=== PATIENT | male | born 1960 | race Caucasian/White ===

== ENCOUNTER 2021-06-12 11:55 | Inpatient (IN) ==
[2021-06-12] MEDS ORDERED: Isovue-370 500 ML BOTTLE IVP ONE (12:13)
[2021-06-12] MEDS ORDERED: *HR* Heparin 5,000 UNIT/ML VIAL IVP PRN ×4 (12:13→12:22)
[2021-06-12] MEDS ORDERED: *HR* Heparin 5,000 UNIT/ML VIAL IVP ONE ×2 (12:13→12:22)
[2021-06-12] MEDS ORDERED: Heparin 25,000UNIT/250ML 1/2NS 25,000 UNIT/250 ML IV.SOLN IVC SCH (12:15)
[2021-06-12] MEDS: Heparin 25,000UNIT/250ML 1/2NS 25,000 UNIT/250 ML IV.SOLN IVC SCH (12:46)
[2021-06-12 13:08] LABS: Basophils % 0.6 %; Eosinophils # 0.4 K/mcL (0.0-0.6); Eosinophils % 5.4 %; Hematocrit 41.9 % (37.5-50.1); Hemoglobin 13.7 g/dL (12.9-16.9); Immature Granulocytes % 0.3 % (0-4); Lymphocytes % 28.1 %; Mean Corpuscular HGB Conc 32.7 g/dL (31.6-35.5); Mean Corpuscular Hemoglobin 26.9 pg (28.0-33.3); Mean Corpuscular Volume 82.3 fL (83.0-100.0); Mean Platelet Volume 9.1 fL (9.4-12.4); Monocytes # 0.4 K/mcL (0.0-1.3); Monocytes % 5.2 %; Neutrophils # 4.3 K/mcL (1.6-8.9); Platelet Count 209 K/mcL (140-400); Red Blood Count 5.09 M/mcL (4.19-5.50); Segmented Neutrophils % 60.4 %; White Blood Count 7.2 K/mcL (4.3-11.1)
[2021-06-12 13:17] LABS: INR 1.5; Prothrombin Time 16.5 Seconds (9.4-12.1)
[2021-06-12 13:18] LABS: Heparin anti-factor XA UFH 0.68 IU/mL (0.30-0.70)
[2021-06-12 13:20] LABS: Activated Partial Thrombo Time 39.9 Seconds (26.0-36.0)
[2021-06-12 13:29] LABS: Alanine Aminotransferase 16 Units/L (7-52); Albumin 4.1 g/dL (3.5-5.7); Albumin/Globulin Ratio 1.2 (1.1-2.2); Alkaline Phosphatase 73 Units/L (34-104); Aspartate Amino Transferase 15 Units/L (13-39); BUN/Creatinine Ratio 19 (6-26); Bilirubin,Indirect 0.4 mg/dL (0.0-1.0); Bilirubin,Total 0.4 mg/dL (0.3-1.0); Blood Urea Nitrogen 19 mg/dL (6-20); Calcium 9.3 mg/dL (8.6-10.3); Carbon Dioxide 29 mEq/L (23-29); Chloride 102 mEq/L (98-107); Globulin 3.3 g/dL (2.4-3.5); Glucose 201 mg/dL (70-105); Osmolality,Calculated 294 (280-300); Potassium 4.1 mEq/L (3.5-5.1); Sodium 138 mEq/L (136-145); Total Protein 7.4 g/dL (6.4-8.9); eGFR For African Americans > 60 (> 60); eGFR For Non-African Americans > 60 (> 60)
[2021-06-12 13:46] LABS: Troponin I < 0.03 ng/mL (< 0.04)
[2021-06-12] MEDS ORDERED: Mag Hydrox/Al Hydrox/Simeth 30 ML UDC PO PRN (16:13)
[2021-06-12] MEDS ORDERED: Ondansetron 4 MG/2 ML VIAL IVP PRN (16:13)
[2021-06-12] MEDS ORDERED: MOM Conc 10 ML UD.LIQ PO PRN (16:13)
[2021-06-12] MEDS ORDERED: Melatonin 3 MG TABLET PO PRN (16:13)
[2021-06-12] MEDS ORDERED: Naloxone 0.4 MG/ML INJ IVP PRN (16:13)
[2021-06-12] MEDS ORDERED: Acetaminophen 325 MG TABLET PO PRN (16:13)
[2021-06-12] MEDS ORDERED: *HR* LORazepam 0.5 MG TABLET PO PRN (17:55)
[2021-06-13 01:30] LABS: Hematocrit 39.6 % (37.5-50.1); Hemoglobin 13.2 g/dL (12.9-16.9); Mean Corpuscular HGB Conc 33.3 g/dL (31.6-35.5); Mean Corpuscular Hemoglobin 27.5 pg (28.0-33.3); Mean Corpuscular Volume 82.5 fL (83.0-100.0); Platelet Count 200 K/mcL (140-400); Red Cell Distribution Width 13.9 % (11.5-14.5); White Blood Count 7.4 K/mcL (4.3-11.1)
[2021-06-13 01:36] LABS: INR 1.2; Prothrombin Time 13.3 Seconds (9.4-12.1)
[2021-06-13 01:50] LABS: BUN/Creatinine Ratio 20 (6-26); Blood Urea Nitrogen 19 mg/dL (6-20); Calcium 8.9 mg/dL (8.6-10.3); Carbon Dioxide 27 mEq/L (23-29); Chloride 103 mEq/L (98-107); Glucose 214 mg/dL (70-105); Osmolality,Calculated 295 (280-300); Potassium 3.7 mEq/L (3.5-5.1); Sodium 138 mEq/L (136-145); eGFR For African Americans > 60 (> 60); eGFR For Non-African Americans > 60 (> 60)
[2021-06-13] MEDS: Heparin 25,000UNIT/250ML 1/2NS 25,000 UNIT/250 ML IV.SOLN IVC SCH (04:40)
[2021-06-13] MEDS ORDERED: Apixaban 5 MG TABLET PO SCH ×2 (16:45→21:00)
[2021-06-13 22:55] VITALS: O2SAT 96
[2021-06-14] MEDS ORDERED: Apixaban 5 MG TABLET PO SCH (06:00)
[2021-06-14 07:09] VITALS: BP 137/70; PULSE 62; TEMP 97.8
== END 2021-06-14 09:07 | disposition home or self-care (01) | DRG 299 ==
LOC: 3BNU 11:55 → EMEROOARM 11:55 → 3BNU 16:47
PROVIDERS: ADMIT Internal Medicine; ATTEND Internal Medicine